=== PATIENT | male | born 1945 | race Caucasian/White ===

== ENCOUNTER → 2024-10-25 13:50 | Outpatient (REF) | payer OTHER, SELFPAY | LOC: RCS 13:50 | PROVIDERS: ATTENDING PHYSICIAN Internal Medicine Cardiovascular Disease; FAMILY PHYSICIAN Family Medicine; OTHER PHYSICIAN Surgery; REFERRING PHYSICIAN Obstetrics & Gynecology | DX: I77.810 Thoracic aortic ectasia (principal) | CPT/HCPCS: 93306 ==

== ENCOUNTER 2024-11-28 07:33 | Emergency (ER) | payer OTHER, SELFPAY ==
[2024-11-28] VITALS (7 sets, daily range): BP systolic 118–154; BP diastolic 67–79; BMI 30.8
[2024-11-28 08:18] LABS: % Basophils 0.4 % (0-2); % Immature Granulocytes 0.3 % (0-0.5); % Monocytes 8.4 % (1.7-9.3); % Neutrophils 54.9 % (42.2-75.2); Absolute Eosinophils 0.2 10^3/uL (0-0.7); Absolute Lymphocytes 2.4 10^3/uL (1.2-3.4); Absolute Monocytes 0.6 10^3/uL (0.1-0.6); Hematocrit 34.3 % (39.0-52.0); Hemoglobin 12.6 g/dL (13.0-18.0); Mean Corp Hgb Conc. 36.7 g/dL (33.0-37.0); Mean Corpuscular Hgb 31.1 pg (27.0-31.0); Mean Corpuscular Volume 84.7 fL (80.0-94.0); Mean Platelet Volume 8.6 fL (7.4-10.4); Nucleated Red Blood Cells % 0 % (-); Platelet Count 167 10^3/uL (130-400); Red Blood Cell Count 4.05 10^6/uL (4.70-6.10); Red Cell Dist. Width 12.2 % (11.5-14.5); White Blood Cell Count 7.2 10^3/uL (4.8-10.8)
[2024-11-28 08:37] LABS: ALT (SGPT) 77 U/L (0-50); AST (SGOT) 52 U/L (17-59); Alkaline Phosphatase 79 U/L (38-126); Blood Urea Nitrogen 25 mg/dl (9-20); Calcium 9.2 mg/dl (8.4-10.2); Carbon Dioxide 29 mmol/L (22-30); Chloride 102 mmol/L (98-107); Glucose 101 mg/dl (70-99); Potassium 4.4 mmol/L (3.5-5.1); Sodium 138 mmol/L (135-145); Total Bilirubin 0.7 mg/dl (0.2-1.3); Total Protein 6.8 g/dl (6.3-8.2); eGFR > 60.00
[2024-11-28 08:48] LABS: Troponin I < 0.012 ng/ml
[2024-11-28] MEDS: TORADOL 30 MG IM (09:36)
--- NOTE | 2024-11-28 10:22 | ED.GENMED ---
History of Present Illness
General
Chief Complaint: Chest Pain
Time Seen by Provider: 11/28/24 08:52
History of Present Illness
History of Present Illness:
79-year-old male presents to the emergency department for evaluation of left-sided chest wall discomfort for the past 2 to 3 days. Currently following with [facility] for prostate cancer, is planning to undergo proton therapy in the
future but currently is only on Orgovyx. He has been on this medication for the past 2 months. His left-sided chest pain is not pleuritic, not worse with exertion, and not worse with position. He notices that it seems to be worse when palpating
the chest. No recent fevers or URI type symptoms. Informs me that his prior PET scans have been negative for metastatic disease. No fever, chills, sweats, shortness of breath, leg swelling, abdominal pain, nausea, or vomiting.
Review of Systems
Review of Systems
Allergies reviewed?: Yes
All Other Systems: ROS reviewed and negative except as documented in HPI and ROS
Phy Exam
Physical Exam
Physical Exam:
GEN: Well appearing, NAD, WDWN
HEENT: Oral mucosa moist, no scleral icterus
Cardiac: Regular rate and rhythm, no murmurs
Chest: Reproducible tenderness diffusely to the left sternocostal joints without palpable abnormality
Lung: No respiratory distress, no tachypnea, lungs clear to auscultation bilaterally
MSK: No gross deformity or injuries
Skin: Good color, no pallor or jaundice, no rashes
Neuro: AO x3, moves all extremities freely
Psych: Calm, cooperative
Scores
Heart Score for Chest Pain Patients
STEMI patient?: No
History: Slightly or Non-Suspicious
ECG: Normal
Age: >/= 65 years
Risk Factors: 1 or 2 Risk Factors
Troponin: </= Normal Limit
Heart Score for Chest Pain Patients: 3
Heart Score Risk: 2.5% MACE over next 6 weeks
Course
Orders/Labs/Results
Orders:
Orders
11/28/24 07:52
Electrocardiogram (*1) Urgent
Reason for Study: Chest Pain
EKG- Treatment ONCE
11/28/24 08:11
Complete Blood Count/With Diff Urgent
Comprehensive Metabolic Panel Urgent
Troponin I Urgent
11/28/24 09:32
CR Ribs-left 3 Vw W/pa Chest Urgent
Comment:
Reason For Exam: chest wall pain
11/28/24 09:33
Ketorolac [Toradol] 30 mg IM NOW STA
Abnormal Lab Results
11/28/24
08:11
RBC 4.05 L 10^6/uL
(4.70-6.10)
Hgb 12.6 L g/dL
(13.0-18.0)
Hct 34.3 L %
(39.0-52.0)
MCH 31.1 H pg
(27.0-31.0)
BUN 25 H mg/dl
(9-20)
Glucose 101 H mg/dl
(70-99)
ALT 77 H U/L
(0-50)
11/28/24 08:11
11/28/24 08:11
Vital Signs
Initial and Last Documented VS:
Initial Vital Signs
Temp Pulse Resp BP Pulse Ox
97.8 F 70 16 147/79 98
11/28/24 07:57 11/28/24 07:57 11/28/24 07:57 11/28/24 07:57 11/28/24 07:57
Last Documented Vital Signs
Temp Pulse Resp BP Pulse Ox
97.8 F 63 18 148/77 99
11/28/24 07:57 11/28/24 11:56 11/28/24 11:56 11/28/24 11:56 11/28/24 11:56
MDM/Problems Addressed
MDM/Problems Addressed:
Patient's pain is easily reproduced along the left chest wall. X-ray is unremarkable, no evidence for bony lesions. He has no pleuritic pain and no shortness of breath, is not on any active chemotherapy thus I have a low suspicion for pulmonary
embolism. EKG and troponin is reassuring. I suspect this is musculoskeletal pain secondary to his hormonal therapy for prostate cancer, encouraged him to discuss this with his urologist
*Critical Care Note
Total Time (30-74mins, 75-104mins- exclusive of procedures): Not Applicable
ED Attending Note
-
Portions of this chart may have been created with voice recognition software.� Occasional wrong word or��sound alike� substitutions may have occurred due to the inherent limitations of voice recognition software.
Discharge Plan
Departure
Patient Disposition: Home (Routine Discharge)
Date of Disposition: 11/28/24
Time of Disposition: 11:50
Patient with high blood pressure during this ER visit?: No
Discharge Problem:
Acute chest wall pain
Instructions: Chest Pain That Is Not Caused by the Heart (DC)
Referrals:
Leon Silvestre IV, DO [Family Provider] -
Activity Restrictions/Additional Instructions:
Follow up with your urologist regarding this as a possible side effect of Orgovyx
Interventions
Interventions:
*Risk Screen - Suicide Last Done: 11/28/24 07:53
*General Assessment Last Done: 11/28/24 09:17
*Neglect/Abuse Screening Last Done: 11/28/24 07:53
ED- Fall Risk Assessment Last Done: 11/28/24 09:17
*ED COVID-19 Vaccine History Last Done: 11/28/24 09:17
*Nursing Disposition Last Done: 11/28/24 12:16
ED- Cardiac Assessment Last Done: 11/28/24 09:17
Discharge Date and Time
Discharge Date/Time: 11/28/24 12:16
Print Language: [id number]
== END 2024-11-28 12:16 | disposition home or self-care (01) ==
LOC: EMR 07:33
PROVIDERS: Emergency Medicine; EMERGENCY PHYSICIAN Emergency Medicine; FAMILY PHYSICIAN Family Medicine
DX: R07.89 Other chest pain (principal)
CPT/HCPCS: 99283; 96372; 71101; 80053; 84484; 85025; 93005

== ENCOUNTER 2024-12-31 06:54 | Emergency (ER) | payer OTHER, SELFPAY ==
[2024-12-31 07:00] VITALS: BP 160/73
--- NOTE | 2024-12-31 07:55 | ED.GENMED ---
History of Present Illness
General
Chief Complaint: Back Pain
Time Seen by Provider: 12/31/24 07:40
History of Present Illness
History of Present Illness:
Patient is an 79-year-old male with past medical history of prostate cancer here today for evaluation of approximately 1.5 to 2 weeks of atraumatic right-sided lower back pain. He reports worsening pain over the past 2 to 3 days. Pain is constant
and is described as a 2 out of 3 in severity but when moving pain becomes more severe noted to be a 7-8 out of 10 in severity. There is no radiation of pain into the lower extremities. No numbness or tingling. No focal weakness. No incontinence.
No fevers or vomiting. No chest pain or difficulty breathing. No abdominal pain. No urinary symptoms. No prior spinal surgeries noted. Incidentally the patient was seen by an orthopedic doctor for left-sided shoulder pain approximately 2 weeks
ago. He was not having the back pain at that time. He was prescribed a Medrol Dosepak as well as diclofenac gel. He did not begin taking the Medrol Dosepak initially but did take it several days ago. He has also been taking Tylenol. He has not
been taking any NSAIDs. Symptoms are worsening.
Review of Systems
Review of Systems
All Other Systems: ROS reviewed and negative except as documented in HPI and ROS
Phy Exam
Physical Exam
Physical Exam:
GENERAL: Alert , in no apparent distress
EYE: pupils equal and reactive
NECK: Supple
ENT: o/p clr, mmm.
CARDIAC: Regular rate and rhythm .
LUNGS: Clear breath sounds bilaterally, no acute respiratory distress, no wheezes/rales/rhonchi
ABDOMEN: Soft, without focal tenderness, no r/g, no cvat
NEUROLOGICAL: Alert and oriented, no focal neuro deficits
SKIN: Warm and dry, skin intact.
MUSCULOSKELETAL: No edema, well perfused. There is no tenderness to palpation along the back. No deformities. No midline tenderness. No swelling. No rashes. No erythema or overlying skin changes. There is full strength/motor and intact
sensation in the bilateral lower extremities. There is subjective pain with raising of the left lower extremity.
PSYCH: Normal and appropriate interaction.
Course
Orders/Labs/Results
Orders:
Orders
12/31/24 07:59
Ibuprofen [Motrin] 400 mg PO NOW STA
Lidocaine [Lidocaine 4% Patch] 1 patch TOPICAL ONCE ONE
Apply Lidocaine patch(s) to:: right lumbar paraspinal region
Lumbar Spine, 2 or 3 View [CR Lumbar Spine 2 Or 3 Views] Urgent
Comment:
Reason For Exam: lower back pain, right side
Pelvis, 1 or 2 Views CR [CR Pelvis - 1 Or 2 Views ] Urgent
Comment:
Reason For Exam: right lower back pain
12/31/24 08:42
Lidocaine [Lidocaine 4% Patch] 1 patch .ROUTE .[facility]
12/31/24 10:00
Oxycodone/Acetaminophen [Percocet 5/325] 1 tablet PO NOW STA
12/31/24 10:24
CT Abd/pelvis W Iv Cont Urgent
Comment:
Reason For Exam: right sided lower back pain
12/31/24 10:48
Complete Blood Count/With Diff Urgent
12/31/24 10:49
Basic Metabolic Panel Urgent
Abnormal Lab Results
12/31/24 12/31/24
10:48 10:49
RBC 3.78 L 10^6/uL
(4.70-6.10)
Hgb 11.6 L g/dL
(13.0-18.0)
Hct 32.3 L %
(39.0-52.0)
Abs Immat Gran (auto) 0.1 H 10^3/uL
(0-0.05)
Immature Gran % 0.9 H %
(0-0.5)
Neutrophils % 76.0 H %
(42.2-75.2)
Lymphocytes % 19.4 L %
(20.5-51.1)
BUN 26 H mg/dl
(9-20)
Glucose 124 H mg/dl
(70-99)
12/31/24 10:48
12/31/24 10:49
Vital Signs
Initial and Last Documented VS:
Initial Vital Signs
Temp Pulse Resp BP Pulse Ox
97.9 F 67 16 160/73 100
12/31/24 07:00 12/31/24 07:00 12/31/24 07:00 12/31/24 07:00 12/31/24 07:00
Last Documented Vital Signs
Temp Pulse Resp BP Pulse Ox
97.9 F 65 18 121/70 98
12/31/24 07:00 12/31/24 14:11 12/31/24 14:11 12/31/24 14:11 12/31/24 14:11
MDM/Problems Addressed
Differential Diagnosis Includes:
Patient is an 79-year-old male with past medical history of prostate cancer here today for evaluation of approximately 1.5 to 2 weeks of atraumatic right-sided lower back pain. Overall, patient appears very well. Vital signs remarkable for an
elevated blood pressure. Physical examination described above. Symptoms/findings most consistent with a lumbar strain. Given age will begin with a lumbar spine and pelvis x-ray. Will also provide ibuprofen and topical lidocaine patches.
12/31/2024 10:52: X-rays reveal degenerative changes without acute findings. Reassessed patient and he is still in significant pain. Will provide Percocet x 1. Discussed risk of drowsiness. Patient would like to proceed with this. Given
discomfort and age we will obtain a CT scan of the abdomen and pelvis with IV contrast to assess for a more emergent intra-abdominal/pelvic pathology. Case discussed with attending, Dr. Vargas.
12/31/2024 13:54: CT scan reveals a fat-containing right inguinal hernia which also contains a tiny portion of the right anterior urinary bladder with mild surrounding inflammatory changes suggesting reactive cystitis. Patient has no urinary
symptoms. Do not suspect urinary tract infection. Patient states he is aware of the right inguinal hernia and has followed up with his primary care doctor for this. Patient also made aware of the small splenic subscapular hematoma and
cholelithiasis. At this time, I suspect the patient's low back pain is muscular. He has been able to ambulate appropriately and does endorse pain with movement and bending. There is no signs of cauda equina or spinal epidural abscess. He feels
steady on his feet and would prefer to go home. I did offer the patient to stay in the hospital overnight for mobility assessment with therapy but patient declined. Recommend supportive measures and close follow-up with his primary care doctor.
The patient also has a scheduled appointment with orthopedics this upcoming . Recommend to attend. All questions answered. Stable for discharge.
*Critical Care Note
Total Time (30-74mins, 75-104mins- exclusive of procedures): Not Applicable
ED Attending Note
-
Portions of this chart may have been created with voice recognition software.� Occasional wrong word or��sound alike� substitutions may have occurred due to the inherent limitations of voice recognition software.
Discharge Plan
Departure
Patient Disposition: Home (Routine Discharge)
Date of Disposition: 12/31/24
Time of Disposition: 13:40
Patient with high blood pressure during this ER visit?: Yes
Condition: Fair
Covid-19: Not Applicable
Discharge Problem:
Acute right-sided back pain
Instructions: Low Back Pain (DC)
Prescriptions:
New
ibuprofen [IBU] 400 mg tablet
400 mg PO Q6H PRN (Reason: Pain) 7 Days Qty: 28 0RF
Rx Instructions:
Take with food
lidocaine 5 % adhesive patch,medicated
1 patch topical DAILY PRN (Reason: pain) 15 Days Qty: 15 0RF
Rx Instructions:
Apply to affected area, may wear for 12 hours maximum once daily
Referrals:
Ky Knowles MD [Active] - Follow up in 2-3 days
UNKNOWN - PT DOES,NOT KNOW [Family Provider] -
Activity Restrictions/Additional Instructions:
You were seen today for evaluation of back pain.
Your labs are grossly consistent with your baseline.
Your x-rays reveal degenerative changes of your spine and pelvis.
Your CAT scan reveals several incidental findings as noted below. Please follow-up with your primary care doctor for these.
1. Fat containing right inguinal hernia which also contains a tiny portion of the right anterior urinary bladder with mild surrounding inflammatory change suggesting reactive cystitis.
2. Suspect small splenic subcapsular hematoma.
3. Cholelithiasis.
Follow-up with the orthopedic specialists as an outpatient within the next 2 to 3 days for close reevaluation.
Return for any new, worsening or concerning symptoms.
Interventions
Interventions:
*Risk Screen - Suicide Last Done: 12/31/24 07:02
*General Assessment Last Done: 12/31/24 09:23
*Neglect/Abuse Screening Last Done: 12/31/24 07:02
ED- Fall Risk Assessment Last Done: 12/31/24 09:23
*ED COVID-19 Vaccine History Last Done: 12/31/24 09:23
*Nursing Disposition Last Done: 12/31/24 14:11
ED-Musculoskeletal Assessment Last Done: 12/31/24 09:23
Discharge Date and Time
Discharge Date/Time: 12/31/24 14:25
Print Language: BRITISH
[2024-12-31 08:00] VITALS: BP 127/59
[2024-12-31] MEDS: LIDOCAINE 4% PATCH 1 PATCH TOPICAL (08:17)
[2024-12-31] MEDS: MOTRIN 400 MG PO (08:17)
[2024-12-31] MEDS: PERCOCET 5/325 1 TABLET PO (10:43)
[2024-12-31 11:02] LABS: % Basophils 0.4 % (0-2); % Eosinophils 0.1 % (0-6); % Immature Granulocytes 0.9 % (0-0.5); % Lymphocytes 19.4 % (20.5-51.1); % Monocytes 3.2 % (1.7-9.3); Absolute Immature Granulocytes 0.1 10^3/uL (0-0.05); Absolute Lymphocytes 1.5 10^3/uL (1.2-3.4); Absolute Monocytes 0.2 10^3/uL (0.1-0.6); Absolute Neutrophils 5.7 10^3/uL (1.4-6.5); Hematocrit 32.3 % (39.0-52.0); Hemoglobin 11.6 g/dL (13.0-18.0); Mean Corp Hgb Conc. 35.9 g/dL (33.0-37.0); Mean Corpuscular Hgb 30.7 pg (27.0-31.0); Mean Corpuscular Volume 85.4 fL (80.0-94.0); Mean Platelet Volume 8.8 fL (7.4-10.4); Nucleated Red Blood Cells % 0 % (-); Platelet Count 188 10^3/uL (130-400); Red Blood Cell Count 3.78 10^6/uL (4.70-6.10); Red Cell Dist. Width 12.3 % (11.5-14.5); White Blood Cell Count 7.5 10^3/uL (4.8-10.8)
[2024-12-31 11:18] LABS: Blood Urea Nitrogen 26 mg/dl (9-20); Calcium 8.8 mg/dl (8.4-10.2); Carbon Dioxide 26 mmol/L (22-30); Chloride 107 mmol/L (98-107); Glucose 124 mg/dl (70-99); Potassium 4.5 mmol/L (3.5-5.1); Sodium 138 mmol/L (135-145); eGFR > 60.00
[2024-12-31 14:11] VITALS: BP 121/70
== END 2024-12-31 14:25 | disposition home or self-care (01) ==
LOC: EMR 06:54
PROVIDERS: Physician Assistant; EMERGENCY PHYSICIAN Emergency Medicine
DX: M54.50 Low back pain, unspecified (principal); K40.90 Unilateral inguinal hernia, without obstruction or gangrene, not specified as recurrent; K80.20 Calculus of gallbladder without cholecystitis without obstruction; D73.5 Infarction of spleen; Z85.46 Personal history of malignant neoplasm of prostate
CPT/HCPCS: 99284; 72100; 72170; 74177; 80048; 85025; Q9967

== ENCOUNTER → 2025-01-20 08:32 | Outpatient (REF) | payer OTHER, SELFPAY | LOC: PAVMRI 08:32 | PROVIDERS: ATTENDING PHYSICIAN Physical Medicine & Rehabilitation; FAMILY PHYSICIAN Family Medicine | DX: M54.16 Radiculopathy, lumbar region (principal) | CPT/HCPCS: 72148 ==